=== PATIENT | female | born 1985 | race Asian ===

== ENCOUNTER → 2016-10-15 | Outpatient (CLI) | payer OTHER ==
[~2016-10-15] MED LIST: LEVOIUD; MELA1TAB5 PO
== END | disposition home or self-care (01) ==
LOC: C.PAPS 17:44
PROVIDERS: ATTEND Physician Assistant
DX: Z12.4 Encounter for screening for malignant neoplasm of cervix (principal); R87.619 Unspecified abnormal cytological findings in specimens from cervix uteri

== ENCOUNTER → 2016-11-11 | Outpatient (CLI) | payer OTHER ==
[2016-11-11 16:36] LABS: BASO % 0.7 %; BASO ABS # 0.05 K/uL (0-0.2); COMPLETE YES; EOS % 1.5 %; HEMATOCRIT 41.1 % (37-47); IG% 0.1 %; LYMPH % 34.8 %; MEAN CELL VOLUME 94.9 fL (80-100); MEAN CORPUSCULAR HGB CONC 34.8 g/dl (32-36); MONO % 8.7 %; NEUT % 54.2 %; PLATELET COUNT 314 K/uL (130-400); RED BLOOD COUNT 4.33 M/uL (4.2-5.4); WHITE BLOOD COUNT 7.48 K/uL (4.8-10.8)
== END | disposition home or self-care (01) ==
LOC: C.LAB1850 15:32
PROVIDERS: ATTEND Obstetrics & Gynecology
DX: Z30.432 Encounter for removal of intrauterine contraceptive device (principal); T83.9XXA Unspecified complication of genitourinary prosthetic device, implant and graft, initial encounter; Y84.8 Other medical procedures as the cause of abnormal reaction of the patient, or of later complication, without mention of misadventure at the time of the procedure

== ENCOUNTER → 2016-11-18 | Day surgery (SDC) | payer OTHER ==
[2016-11-08 13:32] VITALS: Ht 154.9 cm; Wt 63.6 kg
[~2016-11-18] VITALS: Ht 154.9 cm; Wt 63.6 kg
[~2016-11-18] MED LIST changes: +ATROPINE SULFATE 0.1 MG/ML 5ML SYR IV PRN; +DEXAMETHASONE SOD INJ 4 MG/ML VIAL ONE; +EpHEDrine SULFATE INJ 50 MG/ML AMP IV PRN; +FENTANYL CITRATE INJ 50 MCG/1 ML 2 ML VIAL IV PRN; +FENTANYL CITRATE INJ 50 MCG/1 ML 2 ML VIAL ONE; +IBUPROFEN 600 MG TAB PO PRN; +KETOROLAC TROMETHAMINE 30 MG/ML VIAL ONE; +LACTATED RINGER'S 1000ML 1,000 ML IV SCH; +LIDOCAINE HCL 2% 2 ML VIAL (20MG/ML) ONE; +MIDAZOLAM HCL 1 MG/ML 2ML VIAL ONE; +ONDANSETRON INJ 2 MG/ML 2 ML VIAL IV PRN; +ONDANSETRON INJ 2 MG/ML 2 ML VIAL ONE; +OXYCODONE/ACETAMINOPHEN 5-325 TAB PO PRN; +PROMETHAZINE HCL INJ 25 MG in SODIUM CHLORIDE 0.9% 50ML 50 ML IV PRN; +PROPOFOL IV EMULSION 10 MG/ML 20 ML VIAL IV ONE; +SODIUM CHLORIDE 0.9% 1000ML 1,000 ML IV SCH
--- NOTE | 2016-11-18 07:34 | History & Physical Bridge - [place] ---
H&P Re-Evaluation Bridge Note: I have examined the patient, reviewed the History & Physical and in the interval since the performance of the History & Physical I have noted the following changes of clinical significance: No changes noted
--- NOTE | 2016-11-18 09:20 | Discharge Instructions-SurgCtr ---
Discharge Instructions Date of Service Nov 18, 2016. Visit Reason for Visit: Intrauterine Device Complication Discharge Discharge Diagnosis / Problem: s/p hysteroscopic removal of IUD Discharge Goals Goal(s): Therapeutic intervention Activity Recommendations Activity Limitations: per Instructions/Follow-up section Anesthesia . Post Anesthesia Instructions: If you have had General Anesthesia or IV Sedation: * Do not drive today. * Resume driving when surgeon permits. * Do not make important decisions or sign legal documents today. * Call surgeon for: 1. Temperature elevations greater than 101 degrees F. 2. Uncontrollable pain. 3. Excessive bleeding. 4. Persistent nausea and vomiting. 5. Medication intolerance (nausea, vomiting or rash). * For nausea and vomiting use only clear liquids such as: tea, soda, bouillon until nausea subsides, then gradually increase diet as tolerated. * If you have any concerns or questions, call your surgeon's office. If physician is unavailable and it is an emergency, call 911 or go to the nearest emergency room. . Instructions / Follow-Up Instructions / Follow-Up ACTIVITY RECOMMENDATIONS: * Avoid tampons, douching, hot tubs, pools, and intercourse until bleeding has stopped. * May shower as usual. * No strenuous activity for 24-48 hours. After 24-48 hours, you may do anything you feel like doing (driving and sports are okay). SPECIAL CARE INSTRUCTIONS: Special Diet: * Mild nausea may occur in the immediate post-operative period. * Take clear liquids such as tea, cola or bouillon until all nausea has subsided; you may then resume your normal diet. Special Care: * Light bleeding and vaginal spotting can last from a few days to 3-4 weeks. Call your doctor if bleeding becomes heavier than the heaviest part of your period. * Check your temperature twice a day for one week. If it goes above 100.4 degrees Fahrenheit (38.0 Celsius), notify your doctor. * Call your doctor's office for an appointment for 6 weeks after your surgery. FOLLOW-UP VISIT: Call your doctor's office for an appointment for 6 weeks after your surgery. Diet Recommendations Home Diet: resume previous diet Procedures Procedures Performed: Hysteroscopy, Removal Of Intrauterine Device Pending Studies Studies pending at discharge: no Medical Emergencies . Who to Call and When: Medical Emergencies: If at any time you feel your situation is an emergency, please call 911 immediately. . Non-Emergent Contact Non-Emergency issues call your: Primary Care Provider, [employer] . . "Provider Documentation" section prepared by Jyoti Welsh. .
--- NOTE | 2016-11-18 09:21 | [facility] Post Operative Brief Note ---
Immediate Operative Summary Operative Date Nov 18, 2016. Pre-Operative Diagnosis Intrauterine Device Complication Post-Operative Diagnosis Same Procedure(s) Performed Hysteroscopy, Removal Of Intrauterine Device Surgeon Dr. Welsh Cane Cutter Surgeon(s) None Estimated Blood Loss 5 ml Findings Intrauterine IUD with arm embedded in anterior wall of uterus. Tubal ostia visualized. Specimens None Drains bladder drained prior to procedure Anesthesia general Complication(s) None Disposition Recovery Room / PACU
--- NOTE | 2016-11-18 09:28 | [facility] Operative Report ---
Operative Report Operative Date Nov 18, 2016. Pre-Operative Diagnosis Intrauterine Device Complication Post-Operative Diagnosis Same Procedure(s) Performed Hysteroscopy, Removal Of Intrauterine Device Surgeon Dr. Welsh Tray Worker Surgeon(s) None Estimated Blood Loss 5 ml Findings Intrauterine IUD with arm embedded in anterior wall of uterus. Bilateral tubal ostia seen. Specimens None Drains bladder drained prior to procedure Anesthesia general Complication(s) None Disposition Recovery Room / PACU Implants none Indications IUD removal - attempts were made in-office to remove by pulling strings, however it did not move. Ultrasound showed IUD arm embedded in anterior wall of uterus. Description of Procedure The patient was seen in preoperative holding are and RBA discussed - she elected to proceed with surgery. She was taken to the operating room where general anesthesia was introduced, and the patient was placed in the dorsal lithotomy position and prepared and draped in the usual sterile fashion. A weighted speculum was placed in the vagina, anterior lip of cervix grasped with single-tooth tenaculum, and the cervix was gently dilated to admit the hysteroscope. The hysteroscope was inserted, the IUD visualized with the tip of the anterior arm superficially embedded in the uterine wall, and the IUD strings were grasped with a hysteroscopic grasping forcep, the hysteroscope and grasper were gently removed from the cervix, and the IUD came out easily. The IUD was inspected, and noted to be completely intact. Hysteroscope was re- inserted, no bleeding noted. All instruments were withdrawn, patient was awoken from anesthesia and taken to the recovery room in stable and good condition. She tolerated the procedure well. I attest to the content of the Intraoperative Record and any orders documented therein. Any exceptions are noted below. Copy To Jyoti Welsh D.O.
[2016-11-18 10:07] VITALS: BP 121/81; PULSE 73; TEMP 37; O2SAT 99
--- NOTE | 2016-11-18 10:27 | Anesthesia Progress Nt - [facility] ---
Anesthesia Post Op Note Date & Time Nov 18, 2016 at 10:27 Vital Signs Pain Intensity: 0 Vital Signs Past 12 Hours Date Time Temp Pulse Resp B/P (MAP) Pulse Ox O2 Delivery O2 Flow Rate FiO2 11/18/16 10:07 37.0 73 121/81 (94) 99 Room Air 11/18/16 10:00 36.5 70 16 121/75 99 Room Air 11/18/16 09:56 121/75 11/18/16 09:53 64 4 11/18/16 09:53 65 4 98 11/18/16 09:51 120/71 11/18/16 09:48 65 6 11/18/16 09:48 65 6 99 11/18/16 09:46 122/69 11/18/16 09:43 61 8 100 11/18/16 09:43 61 8 11/18/16 09:41 123/71 11/18/16 09:38 66 10 99 11/18/16 09:38 65 10 11/18/16 09:36 115/67 11/18/16 09:33 64 11 99 11/18/16 09:33 66 11 11/18/16 09:31 123/70 11/18/16 09:28 76 15 98 11/18/16 09:28 72 15 11/18/16 09:27 121/51 11/18/16 09:26 70 20 100 11/18/16 09:26 68 20 11/18/16 09:22 122/80 11/18/16 09:21 36.5 74 16 122/80 100 Mask 5 11/18/16 07:21 36.9 68 16 128/83 (98) 96 Room Air Notes Mental Status: alert / awake / arousable, participated in evaluation Pt Amnestic to Procedure: Yes Nausea / Vomiting: adequately controlled Pain: adequately controlled Airway Patency, RR, SpO2: stable & adequate BP & HR: stable & adequate Hydration State: stable & adequate Anesthetic Complications: no major complications apparent
== END | disposition home or self-care (01) ==
LOC: X.SURG 06:55
PROVIDERS: ATTEND Obstetrics & Gynecology
DX: T83.39XA Other mechanical complication of intrauterine contraceptive device, initial encounter (principal); X58.XXXA Exposure to other specified factors, initial encounter

== ENCOUNTER → 2017-01-14 | Outpatient (CLI) | payer OTHER ==
[~2017-01-14] MED LIST changes: -ATROPINE SULFATE 0.1 MG/ML 5ML SYR IV PRN; -DEXAMETHASONE SOD INJ 4 MG/ML VIAL ONE; -EpHEDrine SULFATE INJ 50 MG/ML AMP IV PRN; -FENTANYL CITRATE INJ 50 MCG/1 ML 2 ML VIAL IV PRN; -FENTANYL CITRATE INJ 50 MCG/1 ML 2 ML VIAL ONE; -IBUPROFEN 600 MG TAB PO PRN; -KETOROLAC TROMETHAMINE 30 MG/ML VIAL ONE; -LACTATED RINGER'S 1000ML 1,000 ML IV SCH; -LEVOIUD; -LIDOCAINE HCL 2% 2 ML VIAL (20MG/ML) ONE; -MIDAZOLAM HCL 1 MG/ML 2ML VIAL ONE; -ONDANSETRON INJ 2 MG/ML 2 ML VIAL IV PRN; -ONDANSETRON INJ 2 MG/ML 2 ML VIAL ONE; -OXYCODONE/ACETAMINOPHEN 5-325 TAB PO PRN; -PROMETHAZINE HCL INJ 25 MG in SODIUM CHLORIDE 0.9% 50ML 50 ML IV PRN; -PROPOFOL IV EMULSION 10 MG/ML 20 ML VIAL IV ONE; -SODIUM CHLORIDE 0.9% 1000ML 1,000 ML IV SCH
[2017-01-14 13:29] LABS: HEMATOCRIT 39.1 % (37-47); MEAN CELL VOLUME 94.4 fL (80-100); MEAN CORPUSCULAR HEMOGLOBIN 32.6 pg (25-34); MEAN CORPUSCULAR HGB CONC 34.5 g/dl (32-36); MEAN PLATELET VOLUME 8.9 fL (7.4-10.4); PLATELET COUNT 342 K/uL (130-400); RED BLOOD COUNT 4.14 M/uL (4.2-5.4); WHITE BLOOD COUNT 6.73 K/uL (4.8-10.8)
[2017-01-14 14:10] LABS: ALT/SGPT 33 U/L (12-78); AST/SGOT 20 U/L (15-37); BLOOD UREA NITROGEN 10 mg/dl (7-18); BUN/CREATININE RATIO 14.5 (10-20); CARBON DIOXIDE 26 mmol/L (21-32); CHLORIDE 107 mmol/L (98-107); CHOLESTEROL 212 mg/dl (0-200); CREATININE 0.66 mg/dl (0.60-1.20); GLUCOSE 92 mg/dl (70-99); POTASSIUM 4.1 mmol/L (3.5-5.1); SODIUM 139 mmol/L (136-145)
[2017-01-14 14:13] LABS: ALB/GLOB RATIO 1.3 (0.9-2); ALKALINE PHOSPHATASE 51 U/L (45-117); CHOLESTEROL/HDL RATIO 3.3; HDL CHOLESTEROL 64 mg/dl; LDL CHOLESTEROL CALCULATED 136 mg/dl; TRIGLYCERIDES 61 mg/dl (0-150); VERY LOW DENSITY LIPOPROT CALC 12 mg/dl
== END | disposition home or self-care (01) ==
LOC: C.LAB1850 11:43
PROVIDERS: ATTEND Internal Medicine
DX: Z00.00 Encounter for general adult medical examination without abnormal findings (principal)

== ENCOUNTER → 2017-09-08 | Day surgery (SDC) | payer OTHER ==
[2017-08-30 07:49] VITALS: Ht 154.9 cm; Wt 68.2 kg
[~2017-09-08] VITALS: Ht 154.9 cm; Wt 68.2 kg
[~2017-09-08] MED LIST changes: +HYDR2.5O TOP; +LIDOCAINE HCL 2% 2 ML VIAL (20MG/ML) ONE; +PROPOFOL IV EMULSION 10 MG/ML 20 ML VIAL ONE
--- NOTE | 2017-09-08 13:59 | Endo History and Physical ---
History & Physical Date of Service: September 08, 2017. Chief Complaint: Hx anal fissure, rectal bleeding Referring Physician: Dr Hylton History of Present Illness 32 yo female who presents for colonoscopy secondary to rectal bleeding. Past Surgical History Hx Cardiac Surgery: No Hx Internal Defibrillator: No Hx Pacemaker: No Hx Abdominal Surgery: Yes (LAP APPY) Hx of Implantable Prosthesis: No Hx Post-Op Nausea and Vomiting: No Hx Cancer Surgery: No Hx Thoracic Surgery: No Hx Orthopedic: No Hx Urinary Tract Surgery: No Family History Polyp Social History Smoking Status: Never Smoker Hx Substance Use: No Hx Alcohol Use: Yes (2 GLASSES WINE/DAY) Allergies Coded Allergies: No Known Allergies (Unverified , 08/30/17) Current Medications Reported Home Medications Medications Dose Route/Sig Max Daily Dose Days Date Category Hydrocortisone (Hydrocortisone (Topical)) 2.5 % Oin 1 Appln TOP BID PRN 08/30/17 Reported Kp Melatonin (Melatonin) 3 Mg Tab 1 Tab PO HS PRN 11/08/16 Reported Vital Signs Weight (Kilograms): 68.18 Height (Feet): 5 Height (Inches): 1 Date Time Temp Pulse Resp B/P (MAP) Pulse Ox O2 Delivery O2 Flow Rate FiO2 09/08/17 13:31 36.9 72 18 128/74 (92) 98 Room Air Physical Exam General Appearance: WD/WN, no apparent distress Respiratory/Chest: Auscultation: breath sounds normal Cardiovascular: Heart Auscultation: RRR Abdomen: Bowel Sounds: normal Inspection & Palpation: soft, non-distended, no tenderness, guarding & rebound Assessment and Plan Assessment: 32 yo female who presents for colonoscopy secondary to rectal bleeding. Plan: Proceed with colonoscopy.
--- NOTE | 2017-09-08 14:41 | Discharge Instructions ---
Endoscopy Patient Instructions Date / Procedure(s) Performed September 08, 2017. Colonoscopy Allergy Information Coded Allergies: No Known Allergies (Unverified , 08/30/17) Discharge Date / Findings September 08, 2017. Internal hemorrhoids Medication Instructions OK to resume all medications today as prescribed Reported Home Medications Medications Dose Route/Sig Max Daily Dose Days Date Category Hydrocortisone (Hydrocortisone (Topical)) 2.5 % Oin 1 Appln TOP BID PRN 08/30/17 Reported Kp Melatonin (Melatonin) 3 Mg Tab 1 Tab PO HS PRN 11/08/16 Reported Provider Instructions Activity Restrictions - No exercising or heavy lifting for 24 hours. - Do not drink alcohol the day of the procedure. - Do not drive a car or operate machinery until the day after the procedure. - Do not make any important decisions or sign important papers in 24 hours after the procedure. Following Day: - Return to full activity which may include returning to work/school. Diet Start your diet with liquids and light foods (jello, soup, juice, toast). Then eat your usual diet if not nauseated. Treatment For Common After Affects For mild abdominal pain, bloating, or excessive gas: - Rest - Eat lightly - Lie on right side Follow-Up Information Follow-up with Dr Hylton as scheduled Anesthesia Information What You Should Know You have had a procedure that required some medicine to reduce anxiety and discomfort. This treatment is called moderate sedation. After receiving the treatment, you may be sleepy, but you will be able to breathe on your own. The effects of the treatment may last for several hours. Follow these instructions along with Activity/Diet recommendations noted above: * Do NOT do anything where dizziness or clumsiness would be dangerous. * Rest quietly at home today, then you can be up and about tomorrow. * Have a responsible person stay with you the rest of today. * You may have had an I.V. today. If so, you may take the dressing off later today. Recommendations Call your doctor if: * Trouble breathing * Continuous vomiting for more than 24 hours * Temperature above 101 degrees * Severe abdominal pain or bloating * Pain not relieved by pain medicine ordered * There is increased drainage or redness from any incision * A large amount of rectal bleeding greater than 2-3 tablespoons. (If you had a polyp/s removed or have hemorrhoids, a small amount of blood - from the rectum is to be expected.) * You have any unanswered questions or concerns. IN THE EVENT OF A SERIOUS EMERGENCY, GO TO THE NEAREST EMERGENCY ROOM Your discharge instructions were prepared by provider Zack Maldonado. Patient Instructions Signature Page Mary Jane Mcwilliams Patient (or Guardian) Signature/Date: I have read and understand the instructions given to me by my caregivers. Caregiver/RN/Doctor Signature/Date: The above-named patient and/or guardian has received patient instructions on this date. + Original Patient Signature Page (only) stays with chart. Please make copy for patient.
--- NOTE | 2017-09-08 14:48 | Anesthesiology Progress Note ---
Anesthesia Post Op Note Date & Time September 08, 2017 at 14:48 Vital Signs Pain Intensity: 0 Vital Signs Past 12 Hours Date Time Temp Pulse Resp B/P (MAP) Pulse Ox O2 Delivery O2 Flow Rate FiO2 09/08/17 14:37 84 18 134/86 (102) 100 Room Air 09/08/17 14:22 36.9 79 18 122/77 (92) 98 Room Air 09/08/17 13:31 36.9 72 18 128/74 (92) 98 Room Air Notes Mental Status: alert / awake / arousable, participated in evaluation Pt Amnestic to Procedure: Yes Nausea / Vomiting: adequately controlled Pain: adequately controlled Airway Patency, RR, SpO2: stable & adequate BP & HR: stable & adequate Hydration State: stable & adequate Anesthetic Complications: no major complications apparent
[2017-09-08 14:49] VITALS: BP 129/89; PULSE 73; O2SAT 99
--- NOTE | 2017-09-08 14:52 | GI REPORT ---
Patient Name: Mary Jane Mcwilliams Procedure Date: 09/08/2017 1:32 PM Date of : 1985 Admit Type: Outpatient Age: 32 Gender: Female Attending MD: Zack Maldonado DO Procedure: Colonoscopy Providers: Zack Maldonado DO Referring MD: Sultana Garcia Indications: Rectal bleeding Medicines: Monitored Anesthesia Care Complications: No immediate complications. Estimated Blood Loss: Estimated blood loss: none. Procedure: Pre-Anesthesia Assessment: - Prior to the procedure, a History and Physical was performed, and patient medications and allergies were reviewed. The patient's tolerance of previous anesthesia was also reviewed. The risks and benefits of the procedure and the sedation options and risks were discussed with the patient. All questions were answered, and informed consent was obtained. Prior Anticoagulants: The patient has taken no previous anticoagulant or antiplatelet agents. ASA Grade Assessment: II - A patient with mild systemic disease. After reviewing the risks and benefits, the patient was deemed in satisfactory condition to undergo the procedure. After I obtained informed consent, the scope was passed under direct vision. Throughout the procedure, the patient's blood pressure, pulse, and oxygen saturations were monitored continuously. The scope was introduced through the anus and advanced to the terminal ileum. The colonoscopy was performed without difficulty. The patient tolerated the procedure well. The quality of the bowel preparation was good. The terminal ileum, ileocecal valve, appendiceal orifice, and rectum were photographed. Findings: The perianal and digital rectal examinations were normal. Non-bleeding internal hemorrhoids were found during retroflexion. The hemorrhoids were small. The exam was otherwise without abnormality. Impression: - Non-bleeding internal hemorrhoids. - The examination was otherwise normal. - No specimens collected. Recommendation: - Resume previous diet. - Continue present medications. - Repeat colonoscopy at age 51 for surveillance. - Return to primary care physician as previously scheduled. Zack Maldonado DO 09/08/2017 2:51:54 PM This report has been signed electronically. Note Initiated On: 09/08/2017 1:32 PM Number of Addenda: 0 I attest to the content of the Intraoperative Record and orders documented therein, exceptions below {[id number]}
== END | disposition home or self-care (01) ==
LOC: C.GI 13:11
PROVIDERS: ATTEND Internal Medicine
DX: K62.5 Hemorrhage of anus and rectum (principal); K64.8 Other hemorrhoids; J45.909 Unspecified asthma, uncomplicated; Z90.89 Acquired absence of other organs; Z83.71 Family history of colonic polyps